=== PATIENT | male | born 2000 | race Two or more races ===

== ENCOUNTER 2023-08-06 11:55 | Emergency (ER) | payer MEDICAID ==
[~2023-08-06] VITALS: Ht 165.1 cm; Wt 82.1 kg
[2023-08-06 12:03] VITALS: BP 127/67; TEMP 98.4
[2023-08-06] MEDS ORDERED: IBUP-1955 PO (12:20)
[2023-08-06] MEDS ORDERED: IBUPROFEN 600 MG TABLET PO ONE (12:30)
[2023-08-06] MEDS ORDERED: TDAP [DIPH/PERTUSSIS/TET] 0.5 ML VIAL IM ONE ×2 (12:30→12:33)
[2023-08-06] MEDS ORDERED: IBUPROFEN 600 MG TABLET ONE (12:33)
[2023-08-06 12:46] VITALS: O2SAT 100
== END 2023-08-06 12:47 | disposition home or self-care (01) ==
LOC: ER 11:59
DX: S02.5XXA Fracture of tooth (traumatic), initial encounter for closed fracture (principal); S92.101A Unspecified fracture of right talus, initial encounter for closed fracture; S00.531A Contusion of lip, initial encounter; W22.8XXA Striking against or struck by other objects, initial encounter; Y93.89 Activity, other specified; Y92.89 Other specified places as the place of occurrence of the external cause; Y99.8 Other external cause status
CPT/HCPCS: 90715